=== PATIENT | female | born 1990 | race Caucasian/White ===

== ENCOUNTER 2016-07-16 02:24 | Emergency (ER) | payer OTHER ==
--- NOTE | ~2016-07-16 | CR141 ---
[facility] A Service of [facility] & [facility] RADIOLOGY TEXT RESULTS PATIENT: ARDEN STEWART LOCATION: [facility] : 86 UNIT #: [id number] AGE: [address]: Rodrigo Faria MD SEX: F ORDER DR: [id number] [facility] [address] [place], [place] [address] [id number] MR#: [id number] Acc #: [id number] NAME: ARDEN STEWART. : 1990 SEX: F STUDY DATE/TIME: 07/16/2016 03:10 UNIT: [facility] ROOM: STUDY DESCRIPTION: CR Hand Min 3 Views Lt Attending Physician: Rodrigo Faria M.D. Ordering Physician: Rodrigo Faria M.D. Primary Care Physician: Primary Care Physician No MEDICAL IMAGING REPORT This report is preliminary unless electronic signature is present EXAM Left hand, 07/16 at 03:10 INDICATION Swelling and burning in the hand with mottling after injecting heroin tonight. FINDINGS 3 views of the left hand were obtained. There is no fracture or malalignment. There are no radiopaque foreign bodies. There is diffuse soft tissue swelling without soft tissue gas. IMPRESSION The bones are normal. Soft tissue swelling without radiopaque foreign body or soft tissue gas identified. Dictated by... Jitendra Marquez Jr., M.D. THIS IS AN ELECTRONICALLY VERIFIED REPORT Jitendra Marquez Jr., M.D. at 07/16/2016 5:19 PM RUTH/nolberto TD: 07/16/2016 10:40 JOB #: [id number] MEDICAL IMAGING REPORT Page 1 of 1 COPY
[~2016-07-16 02:24] MED LIST: CIPRO PO
[2016-07-16 05:16] LABS: BASOPHIL# 0.1 X10e3 (0-0.3); BASOPHIL% 0.9 % (0-2.5); EOSINOPHIL# 0.1 X10e3 (0-0.7); HEMOGLOBIN 11.8 gm/dL (12.0-16.0); LYMPHOCYTE# 2.8 X10e3 (1.0-3.5); LYMPHOCYTE% 27.6 % (17.0-45.0); MEAN CELL VOLUME 86.9 FL (83-96); MEAN CORPUSCULAR HEMOGLOBIN 28.4 PG (28-34); MEAN CORPUSCULAR HGB CONC 32.6 g/dL (30-36); MEAN PLATELET VOLUME 8.9 FL (6.5-11.5); MONOCYTE# 0.6 X10e3 (0-1.0); MONOCYTE% 6.2 % (3.0-12.0); NEUTROPHIL# 6.5 X10e3 (1.5-7.1); NEUTROPHIL% 64.3 % (40-75); PLATELET COUNT 449 X10e3 (140-420); RED BLOOD COUNT 4.15 X10e (3.90-5.30); RED CELL DISTRIBUTION WIDTH 14.1 % (11.0-15.5); WHITE BLOOD COUNT 10.2 X10e3 (4.0-10.5)
[2016-07-16 05:37] LABS: DIFF IND NO
[2016-07-16 05:44] LABS: BUN/CREATININE RATIO 18.33; CALCIUM SERUM 9.3 mg/dL (8.4-10.2); CREATININE SERUM 0.6 mg/dL (0.6-1.4); GLOM FILT RATE Estimated 124.9 mL/min (>60); POTASSIUM 3.1 mmol/L (3.5-5.1)
== END 2016-07-16 07:49 ==
LOC: CED 02:24
PROVIDERS: Emergency Medicine
DX: M79.89 Other specified soft tissue disorders (principal); T50.995A Adverse effect of other drugs, medicaments and biological substances, initial encounter; F17.200 Nicotine dependence, unspecified, uncomplicated
CPT/HCPCS: 36415; 73130; 80048; 84703; 85025; 96365; 96375; 99285; J2270; J3370